=== PATIENT | male | born 1995 | race Caucasian/White ===

== ENCOUNTER 2022-02-20 11:14 | Emergency (ER) | payer OTHER ==
[~2022-02-20] VITALS: Ht 152.4 cm; Wt 50.8 kg
[2022-02-20 11:17] VITALS: BP 135/100
[2022-02-20 12:17] LABS: APPEARANCE,URINE CLOUDY (CLEAR); BILIRUBIN,URINE NEGATIVE (NEGATIVE); BLOOD, URINE 3+ (NEGATIVE); COLOR,URINE RED (YELLOW); LEUKOCYTE ESTERASE ,URINE NEGATIVE (NEGATIVE); NITRITE, URINE NEGATIVE (NEGATIVE); UGLUCOSE NEGATIVE (NEGATIVE)
[2022-02-20 12:23] LABS: BASOPHILS % (AUTO) 0.3 % (0.0-2.0); EOSINOPHILS % (AUTO) 0.7 % (0.0-4.0); HEMOGLOBIN 16.2 g/dL (12.0-18.0); LYMPHOCYTES # (AUTO) 1.8 K/uL (2.0-11.5); LYMPHOCYTES % (AUTO) 30.8 % (20.5-51.1); MEAN CORPUSCULAR HEMOGLOBIN 29 pg (27-31); MEAN CORPUSCULAR HGB CONC 35 g/dL (33-37); MEAN CORPUSCULAR VOLUME 82.6 fL (80-94); MONOCYTES # (AUTO) 0.3 K/uL (0.8-1.0); MONOCYTES % (AUTO) 5.5 % (1.7-9.3); NEUTROPHILS # (AUTO) 3.7 K/uL (1.8-7.7); NEUTROPHILS % (AUTO) 62.7 % (42.2-75.2); PLATELET COUNT (AUTO) 201 K/uL (140-450); RED BLOOD CELL COUNT(AUTO) 5.57 MIL/uL (4.20-6.10); RED CELL DISTRIBUTION WIDTH 12.8 % (11.6-13.7)
[2022-02-20 12:29] LABS: OTHER CASTS, URINE None Seen /LPF (None Seen); RBC,URINE 20-50 /HPF (0-5); WBC,URINE 0-5 /HPF (0-5)
[2022-02-20 12:37] LABS: ALBUMIN 5.1 g/dL (3.4-5.0); ANION GAP 8.3 (8-16); CARBON DIOXIDE 28.2 mmol/L (21-32); POTASSIUM 3.5 mmol/L (3.5-5.1); TOTAL BILIRUBIN 1.3 mg/dL (0.0-1.0)
[2022-02-20] MEDS ORDERED: NAPR-1704 PO (13:02)
[2022-02-20 13:21] VITALS: BP 126/85
== END 2022-02-20 13:22 | disposition home or self-care (01) ==
LOC: MED 11:14
DX: N20.0 Calculus of kidney (principal); R31.9 Hematuria, unspecified; Z79.1 Long term (current) use of non-steroidal anti-inflammatories (NSAID)
CPT/HCPCS: 36415; 80053; 81001; 83690; 85025; 99284

== ENCOUNTER 2022-03-11 09:06 | Emergency (ER) | payer OTHER ==
[~2022-03-11] VITALS: Ht 167.6 cm; Wt 51.7 kg
[~2022-03-11 09:06] MED LIST: NAPR-1704 PO
[2022-03-11 09:09] VITALS: BP 116/70
[2022-03-11] MEDS ORDERED: KETOROLAC 60 MG/2 ML VIAL IM ONE (10:10)
--- NOTE | 2022-03-11 10:13 | NUR ---
26 y/o male, c/o pelvic pain radiates to low back that started earlier this morning. pt states he was here last month for kidney stones, pt is c/o of same s/s. pt states he has also been having nausea, vomiting. skin is pale/warm/dry. a&o x4 with even and steady gait. lungs clear bl, heart rate even and regular. pt denies dysuria, hematuria, urinary frequency or retention, or anyone sick in the household with the same symptoms. pt denies any fever, cp, sob, or cough at this time. pt states pain is 8/10 at this time, pt describes pain as constant/pressure/aching/tender with palpation. no cva tenderness. patient positioned for comfort. hob elevated. bed down. ermd made aware of pt. pmh: denies nka med: naproxen
--- NOTE | 2022-03-11 10:14 | NUR ---
pt taken to xray via wheelchair at this time
--- NOTE | 2022-03-11 10:23 | NUR ---
pt refused medication at this time, states pain is going down after naproxen dose prior to arrival
[2022-03-11] MEDS ORDERED: TRAM50TA1 PO (11:48)
[2022-03-11 12:06] VITALS: BP 134/81
--- NOTE | 2022-03-11 12:07 | NUR ---
Patient discharged with v/s stable. Written and verbal after care instructions given and explained. Patient alert, oriented and verbalized understanding of instructions. Ambulatory with mother to car. All questions addressed prior to discharge. ID band removed. Patient advised to follow up with PMD. Rx of tramadol hcl (sent) given. Patient educated on indication of medication including possible reaction and side effects. Opportunity to ask questions provided and answered. copy of xray given
== END 2022-03-11 12:07 | disposition home or self-care (01) ==
LOC: MED 09:06
DX: R31.9 Hematuria, unspecified (principal); N20.0 Calculus of kidney; Z87.442 Personal history of urinary calculi; Z79.899 Other long term (current) drug therapy
CPT/HCPCS: 74018; 81002; 99283; J1885